=== PATIENT | male | born 1995 | race Caucasian/White ===

== ENCOUNTER 2017-09-03 16:18 | Emergency (ER) | payer SELFPAY ==
[~2017-09-03] VITALS: Ht 172.7 cm; Wt 68.0 kg
[2017-09-03] MEDS ORDERED: PROZAC10 MG PO (16:30)
[2017-09-03 17:25] LABS: ABSOLUTE BASOPHILS 0.1 thou/uL (0.0-0.2); ABSOLUTE LYMPHOCYTES 1.7 thou/uL (0.8-5.3); ABSOLUTE MONOCYTES 0.9 thou/uL (0.0-1.2); ABSOLUTE NEUTROPHILS 8.5 thou/uL (1.6-8.1); BASOPHILS 0.5 %; EOSINOPHILS 0.3 %; HEMATOCRIT 46.2 % (42.0-52.0); HEMOGLOBIN 15.6 gm/dL (14.0-18.0); LYMPHOCYTES 15.2 %; MCH 28.4 pg (26.0-34.0); MCHC 33.8 g/dL (28.0-37.0); MONOCYTES 8.2 %; MPV 8.3 fl. (7.2-11.1); NUCLEATED RBCS 0 /100WBC; PLATELET COUNT* 177 thou/uL (150-400); POLYS 75.8 %; RBC 5.51 mil/uL (4.50-6.00); RDW-CV 14.2 % (10.5-14.5); WBC 11.2 thou/uL (4.0-11.0)
[2017-09-03 17:43] LABS: ANION GAP 10 mmol/L (7-16); BUN 15 mg/dL (7-18); CALCIUM 9.5 mg/dL (8.5-10.1); CHLORIDE 104 mmol/L (98-107); CO2 26 mmol/L (21-32); CREATININE 1.2 mg/dL (0.6-1.3); GLUCOSE 90 mg/dL (70-99); POTASSIUM 3.7 mmol/L (3.5-5.1); SODIUM 140 mmol/L (136-145)
[2017-09-03 17:50] LABS: ALBUMIN 4.6 g/dL (3.4-5.0); ALKALINE PHOSPHATASE 77 U/L (46-116); LIPASE 126 U/L (73-393); SGOT 24 U/L (15-37); SGPT 42 U/L (30-65); TOTAL BILIRUBIN 0.8 mg/dL (<0.1-1.0); TOTAL PROTEIN 8.1 g/dL (6.4-8.2); TROPONIN-I LEVEL <0.06 ng/mL (<0.06)
[2017-09-03 18:08] LABS: INR 1.2; PROTIME 11.3 Seconds (9.20-11.50)
[2017-09-03 18:09] LABS: APTT 27.7 Seconds (25.0-31.3)
[2017-09-03 20:13] VITALS: BP 114/63
--- NOTE | 2017-09-05 13:04 | EKG ---
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 : 1995 Requested By: Trung Dover Order Number: [id number] MD: Dudley Shahid Measurements Intervals [place] Rate: 77 P: 26 [place]: 124 QRS: 80 QRSD: 98 T: 54 QT: 365 QTc: 414 Interpretive Statements Sinus rhythm RSR' in V1 or V2, probably normal variant ST elev, probable normal early repol pattern Baseline wander in lead(s) V5 No previous ECG available for comparison Electronically Signed On 09-05-2017 13:04:31 CDT by Dudley Shahid [email or web address] <ELECTRONICALLY SIGNED> By: Dudley Shahid MD, [facility] 09/05/17 1304 1628 1628 Dudley Shahid MD, [facility] /EPI
--- NOTE | 2017-09-05 13:05 | EKG ---
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 : 1995 Requested By: Trung Dover Order Number: [id number] MD: Dudley Shahid Measurements Intervals [place] Rate: 82 P: 50 IN: 130 QRS: 82 QRSD: 96 T: 48 QT: 365 QTc: 427 Interpretive Statements Sinus rhythm ST elev, probable normal early repol pattern Baseline wander in lead(s) V1 No previous ECG available for comparison Electronically Signed On 09-05-2017 13:04:50 CDT by Dudley Shahid [email or web address] <ELECTRONICALLY SIGNED> By: Dudley Shahid MD, [facility] 09/05/17 1304 16 16 Dudley Shahid MD, [facility] /EPI
== END 2017-09-03 20:13 | disposition home or self-care (01) ==
LOC: M.ERS 16:18
PROVIDERS: Emergency Medicine Emergency Medical Services
DX: R55 Syncope and collapse (principal)